=== PATIENT | male | born 1995 | race Caucasian/White ===

== ENCOUNTER 2020-09-16 17:00 | Observation (INO) | payer BC ==
[~2020-09-16 17:00] MED LIST: Iopamidol-370 76% 500 ML 1 ML ONE
[2020-09-16] MEDS ORDERED: Ondansetron PF 4 MG/2 ML Vial ONE (17:32)
[2020-09-16] MEDS ORDERED: Morphine 4 MG/ML VIAL ONE ×3 (17:32→21:13)
[2020-09-16 17:36] LABS: #Eosinphils 0.1 thou/uL (0.0-0.7); #Monocytes 1.4 thou/uL (0.11-0.59); #Neutrophils 9.5 thou/uL (1.40-6.50); %Basophils 0.2 % (0.0-1.0); %Eosinophils 0.5 % (0.0-10.0); %Lymphocytes 8.6 % (21.0-51.0); %Monocytes 11.7 % (0.0-10.0); Hemoglobin 15.7 g/dL (14.0-18.0); Mean Corpuscular HGB CONC 34.3 g/dL (32.0-36.0); Mean Corpuscular Hemoglobin 30.4 pg (27.0-31.0); Mean Corpuscular Volume 88.7 fL (78.0-98.0); Mean Platelet Volume 7.4 fL (7.4-10.4); Platelet Count 264 thou/uL (130-400); RBC Distribution Width 11.5 % (11.5-14.5); Red Blood Cell (RBC) Count 5.17 mill/uL (4.70-6.10)
[2020-09-16] MEDS ORDERED: Piperacillin/Tazobactam 4.5 GM VIAL ONE (17:45)
[2020-09-16 17:56] LABS: ALT (SGPT) 239 U/L (8-55); AST (SGOT) 64 U/L (5-34); Alkaline Phosphatase 111 U/L (40-110); Anion Gap 17 mmol/L (10-20); BUN (Urea Nitrogen) 7 mg/dL (8.9-20.6); Bilirubin, Total 1.6 mg/dL (0.2-1.2); Calc. Creatinine Clearance 0 mL/min (70-130); Calcium 9.9 mg/dL (7.8-10.44); Carbon Dioxide 23 mmol/L (22-29); Chloride 102 mmol/L (98-107); Globulin 3.2 g/dL (2.4-3.5); Glucose 126 mg/dL (70-105); Lipase 23 U/L (8-78); Protein, Total 8.2 g/dL (6.0-8.3); Sodium 138 mmol/L (136-145)
--- NOTE | 2020-09-16 18:17 | ULT ---
GALLBLADDER ULTRASOUND: HISTORY: Right upper quadrant abdominal pain, status post recent cholecystectomy FINDINGS: The liver demonstrates homogeneous echotexture without focal mass or intrahepatic biliary ductal dila tation. Interval changes of cholecystectomy are noted since the ultrasound of 07/11/2020. The right kidney is normal. The pancreas is not visualized due to overlying bowel gas. There is small amount of free fluid adjacent to the liver probably in the gallbladder fossa. The common duct [id number] in diameter. IMPRESSION: Postoperative changes of cholecystectomy without evidence of biliary obstruction. Small amount of fr ee fluid is most likely postoperative. If there is clinical concern for a bile leak, further evaluation with HIDA scan should be performed.
--- NOTE | 2020-09-16 21:29 | CT ---
CT ABDOMEN AND PELVIS WITH IV CONTRAST: History: Cholecystectomy by Dr. Yeager at the [facility] for cholelithiasis four days ago. Right sided progressively worsening abdominal pain. Nausea without vomiting. Constipation and fever, contr ibuted to Hydrocodone the patient has been taking. Comparison: CT scan from previous day ([facility]) FINDINGS: The lung bases are clear. Changes of cholecystectomy are again seen. A small amount of free air noted on the previous exam is no longer seen. A moderate amount of free fluid is seen in the pelvis. Small amount of perihepatic fluid and fluid in the gallbladder fossa are again seen. A tiny speck of air i n the gallbladder again seen. The remainder of free air has improved in the interim. No abnormally lo culated fluid collection is noted to suggest abscess formation. The small bowel loops are not abnorma lly dilated but are fluid filled. Contrast seen on the previous study has moved from the small bowel into the right colon with a normal appearing appendix. The urinary bladder is well distended and normal. No acute osseous abnormality i s seen. IMPRESSION: 1. Redemonstration of post-operative changes with a stable amount of fluid in the abdomen and pelvis since yesterday. If there is concern for bile leak, further evaluation with HIDA scan should be perfo rmed. POS: OFF
--- NOTE | 2020-09-16 23:05 | PDOC.H&P ---
- History & Physical Encounter Time: 09/16/20 Encounter Time: 23:00 CHIEF COMPLAINT: Abdominal pain HISTORY OF PRESENT ILLNESS: 25-year-old male presents with a 2-day history of abdominal pain. The patient underwent laparoscopic cholecystectomy for symptomatic cholelithiasis on September 13, 2020. Over the last 48 hours, he has reported significant amounts of abdominal pain. This is described as severe cramping and seems to move around his abdomen. Is associated with anorexia, constipation, and fever measured at 101. He presented to an outside emergency department yesterday where computed tomography of the abdomen demonstrated a small amount of fluid in the pelvis and subhepatic space as well as normal postoperative changes after laparoscopic cholecystectomy. His total bilirubin was 1.4. He contacted the surgery clinic earlier today with complaints of abdominal pain. Given his benign findings at the emergency department and the description of his pain, it was recommended that he contact the clinic first thing in the morning to schedule a follow-up appointment; however, his pain persisted and he presented to the emergency department again. REVIEW OF SYSTEMS: General: Endorses fever Eyes: Denies visual changes, pain, or irritation ENT: Denies changes in hearing, nasal discharge, or sore throat Cardiovascular: Denies chest pain, palpitations, shortness of breath, or edema. Respiratory: Denies cough, shortness of breath, or wheezing Gastrointestinal: Positive per HPI Genitourinary: Denies frequent urination or dysuria Musculoskeletal: Denies pain or restricted motion Integumentary: Denies abnormal rashes, sores, or skin lesions Neurological: Denies numbness, tingling, or weakness. Psychiatric: Denies new onset anxiety or depression Endocrine: Denies temperature intolerances, polyuria, or excessive thirst Hematologic: Denies abnormal bruising or bleeding PAST MEDICAL HISTORY: Denies PAST SURGICAL HISTORY: Laparoscopic cholecystectomy FAMILY HISTORY: Noncontributory SOCIAL HISTORY non smoker, denies illicit drug use, endorses occasional alcohol consumption. ALLERGIES: No known drug allergies PHYSICAL EXAM: Vital Signs: HR 88 BP 119/75 T 96.6 RR 18 SpO2 [ ] General: Alert and oriented, mild distress ENT: Sclera anicteric, pupils equal and reactive, mucous membranes moist Neck: No jugular venous distention, trachea midline Cardiovascular: Regular rate and rhythm Pulmonary: Clear to auscultation Abdominal: Soft, nondistended, ecchymosis around the umbilical port site. Generalized tenderness to palpation with no evidence of peritonitis Genitourinary: Normal anatomy Rectal: Deferred Integument: No abnormal rashes or lesions Musculoskeletal: No gross deformities or edema, normal range of motion LABORATORY: Laboratory analysis reviewed as well as the laboratory analysis from his emergency department visit yesterday. Today, he shows a white blood cell count of 12 with 79% neutrophils compared to 8.3 yesterday. In addition, his hemoglobin has increased from 13.6-15.7. Total bilirubin today is 1.6 (1.4). AST/ALT reduced from his emergency department visit at 239. Mildly elevated alkaline phosphatase at 111. IMAGING: Computed tomography abdomen reviewed as well as his ultrasound. The radiologist rotation was reviewed as well. Demonstrates postoperative changes from cholecystectomy with small amount of fluid. Resolving intra-abdominal air from pneumoperitoneum. ASSESSMENT: 25-year-old male with postoperative pain and dehydration after laparoscopic cholecystectomy on September 13, 2020. PLAN: Place in observation IV fluid resuscitation Pain control Repeat a.m. labs to include LFTs. We will consider bile leak if total bilirubin is not downtrending.
[2020-09-16] MEDS ORDERED: Ondansetron PF 4 MG/2 ML Vial IVP PRN (23:19)
[2020-09-16] MEDS ORDERED: Morphine 2 MG/ML VIAL SLOW IVP PRN (23:19)
[2020-09-16] MEDS ORDERED: HYDROcodone/Acetaminophen 10/325 mg Tablet PO PRN (23:19)
[2020-09-16 23:49] VITALS: BMI 21.7
[2020-09-17 00:02] LABS: Bilirubin, Direct 0.9 mg/dL (0.1-0.3)
[2020-09-17] MEDS: D5 1/2 NS w/20 mEq KCL 1,000 ML IV SCH ×4 (00:07→21:29)
[2020-09-17 06:00] LABS: #Eosinphils 0.1 thou/uL (0.0-0.7); #Lymphocytes 1.3 thou/uL (1.20-3.40); #Monocytes 1.4 thou/uL (0.11-0.59); #Neutrophils 7.7 thou/uL (1.40-6.50); %Basophils 0.5 % (0.0-1.0); %Eosinophils 1.3 % (0.0-10.0); %Lymphocytes 12.4 % (21.0-51.0); %Monocytes 12.9 % (0.0-10.0); Hemoglobin 13.4 g/dL (14.0-18.0); Mean Corpuscular HGB CONC 33.7 g/dL (32.0-36.0); Mean Corpuscular Hemoglobin 30.3 pg (27.0-31.0); Mean Corpuscular Volume 89.7 fL (78.0-98.0); Mean Platelet Volume 7.5 fL (7.4-10.4); Platelet Count 224 thou/uL (130-400); RBC Distribution Width 11.4 % (11.5-14.5); Red Blood Cell (RBC) Count 4.44 mill/uL (4.70-6.10); White Blood Cell (WBC) Count 10.5 thou/uL (4.8-10.8)
[2020-09-17 06:18] LABS: ALT (SGPT) 162 U/L (8-55); AST (SGOT) 34 U/L (5-34); Albumin 4.1 g/dL (3.5-5.0); Alkaline Phosphatase 95 U/L (40-110); Anion Gap 13 mmol/L (10-20); BUN (Urea Nitrogen) 6 mg/dL (8.9-20.6); Bilirubin, Direct 0.9 mg/dL (0.1-0.3); Bilirubin, Total 1.4 mg/dL (0.2-1.2); Calc. Creatinine Clearance 134 mL/min (70-130); Calcium 9.1 mg/dL (7.8-10.44); Carbon Dioxide 26 mmol/L (22-29); Chloride 104 mmol/L (98-107); Glucose 126 mg/dL (70-105); Potassium 4.1 mmol/L (3.5-5.1); Protein, Total 6.8 g/dL (6.0-8.3); Sodium 139 mmol/L (136-145)
[2020-09-17] MEDS ORDERED: Glycopyrrolate 0.2 MG/ML 5 ML SYRINGE ONE (08:51)
[2020-09-17] MEDS ORDERED: Succinylcholine 200 MG/10 ml SYRINGE FS ONE (08:51)
[2020-09-17] MEDS ORDERED: PROPOFOL 200 MG/20 ML VIAL ONE (08:51)
[2020-09-17] MEDS ORDERED: Rocuronium Bromide 10 MG/ML (10ML VIAL) ONE (08:51)
[2020-09-17] MEDS ORDERED: Ondansetron PF 4 MG/2 ML Vial ONE (08:51)
[2020-09-17] MEDS ORDERED: Lidocaine 1% PF 5 ML VIAL ONE (08:51)
[2020-09-17] MEDS: Polyethylene Glycol 3350 17 GM Packet PO SCH (09:07)
[2020-09-17] MEDS: Famotidine 20 MG TAB PO SCH ×2 (09:07→21:28)
[2020-09-17 10:06] LABS: SARS-CoV-2 PCR by NAA Not Detected (NotDetected)
[2020-09-17] MEDS ORDERED: Ketorolac Tromethamine 30 MG/ML VIAL IVP PRN (13:00)
[2020-09-17] MEDS ORDERED: Morphine 4 MG/ML VIAL SLOW IVP PRN (13:00)
[2020-09-17] MEDS ORDERED: Morphine 2 MG/ML VIAL SLOW IVP PRN (13:11)
--- NOTE | 2020-09-17 13:16 | PRG ---
DATE OF SERVICE: 09/17/2020 SUBJECTIVE: The patient had a laparoscopic cholecystectomy done on Thursday, did well until Thursday night when he started having severe right upper quadrant pain. He went to the ER, they did a CT, did not see much. He was given pain medicine, felt better. Discharged home. Returned to the ER. LFTs were elevated. He was admitted. Again, a repeat CT showed small fluid collection. No free air. No dilatation of the bile ducts. Ultrasound confirmed that he was doing a lot better this morning and felt like he was going to be able to handle it and then pain got worse this afternoon. OBJECTIVE: On examination, his temperature is 97.3, pulse 104, blood pressure 132/72. He is holding his right side. No nausea or vomiting. His abdomen is soft, nondistended. The incisions look good. There is no evidence of infection. His urine is clear. LABORATORY DATA: His white count is 10, hemoglobin and hematocrit 13 and 39, platelet count of 224. His T-bilirubin is 1.4. His ALT is 162, otherwise normal liver functions. ASSESSMENT: Post cholecystectomy pain with elevated liver functions. PLAN: BRINAA scan. Job ID: [id number]
--- NOTE | 2020-09-17 14:53 | NM ---
Radionucleotide hepatobiliary scan HISTORY: Abdominal fluid collection. Recent cholecystectomy. Evaluate for biliary leak. FINDINGS: Early images show physiologic uptake of radiotracer throughout the hepatic parenchyma. As e waldemar as 5 minutes, a small focus of uptake is evident just inferior to the right liver margin. Contrast continues to accumulate over the right side of the liver, correlating with the fluid collect ion on recent CT exams. No uptake is evident within the bowel. IMPRESSION : High grade biliary leak. Findings were called to Dr. Yeager at 1446 hours. Code CR.
[2020-09-17] MEDS ORDERED: Indomethacin 50 MG SUPP ONE (15:33)
[2020-09-17] MEDS ORDERED: Fentanyl 100 MCG/2 ML VIAL ONE (15:37)
[2020-09-17] MEDS ORDERED: Midazolam HCl 2 mg/2 ml Vial ONE (15:37)
[2020-09-17] MEDS ORDERED: Iothalamate Meglumine 60% 50 ML VIAL FS ONE (15:48)
[2020-09-17] MEDS ORDERED: cefTRIAXone\\ROCEPHIN 2 GM VIAL ONE (16:28)
[2020-09-17] MEDS ORDERED: Sodium Chloride 0.9% 10 ML ONE (16:28)
[2020-09-17] MEDS ORDERED: Sodium Chloride 0.9% 100 ML ONE (16:28)
--- NOTE | 2020-09-17 17:31 | RAD ---
ERCP: History: Biliary leak FINDINGS: Contrast injected into a nondilated common bile duct. On these three images presented there is contra st passing into the region of the gallbladder fossa. The exact site is difficult and may be in the re gion of the cystic duct remnant. IMPRESSION: Evidence of extravasation of contrast into the gallbladder fossa region. POS: OFF
--- NOTE | 2020-09-17 17:59 | CON ---
DATE OF CONSULTATION: 09/17/2020 CHIEF COMPLAINT: Abdominal pain. HISTORY OF PRESENT ILLNESS: Mr. Huang is a 25-year-old male, whom I actually saw 2 months ago as outpatient with symptomatic cholelithiasis. Ultrasound performed at that time did confirm a single large stone. Surgery referral was made at that time. The patient subsequently underwent a laparoscopic cholecystectomy five days ago at the [facility]. After the procedure, he felt rather well for the first day and a half. However, since then, he has had increasing nonlocalizing abdominal pain with radiation to his right shoulder. He did not have any nausea or vomiting. He reports having a low-grade fever up to 100 degrees yesterday, but no chills or sweats. He has not had a bowel movement since the cholecystectomy. Initial CT performed at the [facility] showed fluid collection that was thought to be postoperative. There was no acute changes. The patient presented back to [facility] last night. HIDA scan performed earlier this morning did showed evidence of biliary leakage. PAST MEDICAL HISTORY: 1. Healthy without any medical illness. 2. Status post recent cholecystectomy. ALLERGIES: NONE. MEDICATIONS AT HOME: None. 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 No tobacco or any alcohol usage. FAMILY HISTORY: Both parents with cholelithiasis. REVIEW OF SYSTEMS: Ten-point review of systems did not show any other pertinent positives or negatives and no other symptoms other than listed above. PHYSICAL EXAMINATION: VITAL SIGNS: Temperature 99.0, blood pressure 138/68, and pulse of 89. GENERAL: He is alert, conversant, without distress. HEENT: Shows anicteric sclerae. Oropharynx is clear and moist. NECK: Supple. CV: Shows normal S1 and S2. Regular rate and rhythm. CHEST: Show breath sounds clear to auscultation. ABDOMEN: Mildly distended, diffusely tender. No guarding or rebound. No active bowel sounds. EXTREMITIES: Show no edema. LABORATORY DATA: WBCs 10.5, hemoglobin 13.4, and platelet count of 324. Electrolytes within normal range, creatinine 0.87, bilirubin 1.4, AST 34, ALT of 162, and alkaline phosphatase 95. IMAGING STUDY: CT as above showed nonspecific fluid collection. HIDA scan showed exteriorization of bowel into the peritoneal cavity. ASSESSMENT: A 25-year-old male, who is postop day #5 from laparoscopic cholecystectomy for symptomatic cholelithiasis, now presents with increasing abdominal pain with HIDA scan suggestive of biliary leakage. Leak is likely either from aberrant duct of Luschka or from cystic duct. RECOMMENDATION: Proceed with ERCP with sphincterotomy and stent placement. Indication including risk, not limited to, bleeding, perforation, and pancreatitis were reviewed with Mr. Huang. All questions answered. The patient agrees to proceed. Job ID: [id number]
--- NOTE | 2020-09-17 18:03 | OP ---
DATE OF PROCEDURE: 09/17/2020 PROCEDURE PERFORMED: Endoscopic retrograde cholangiopancreatography with sphincterotomy and biliary stent placement. PREMEDICATION: Given by Anesthesiology. PREPROCEDURE DIAGNOSES: 1. Status post cholecystectomy. 2. Bile leakage by HIDA scan. POSTPROCEDURE DIAGNOSES: 1. Biliary leakage from aberrant duct in right upper quadrant. 2. Normal cystic stump and common bile duct. PROCEDURE IN DETAILS: Written consents were obtained prior to procedure. After adequate sedation, the side-viewing endoscope was advanced down the stomach through the pylorus into duodenum. The ampulla was visualized and appeared to be very small, but without any other abnormality. Selective cannulation was performed with a sphincterotome with guidewire assist. The cannulation of the common bile duct was fairly easy. Injection of contrast showed normal cystic stump without any extravasation. The catheter was advanced further up into the bile duct with injection contrast showed extravasation in the right upper quadrant consistent with leakage through the aberrant duct of Luschka. A 1-cm sphincterotomy was performed at 12 o'clock position with good hemostasis. A guide apparatus was placed over the guidewire. 11.5-Italian 5-cm biliary stent was then placed across the guide apparatus into good position. There was good excretion of contrast in bowel through the bile duct. Fluoroscopy performed showed good placement. The patient tolerated the procedure well without any immediate complication. ASSESSMENT: Biliary leakage, status post sphincterotomy and biliary stent placement. RECOMMENDATIONS: 1. Start on clear liquids. 2. I anticipate discharge in the next day or two. Job ID: [id number]
[2020-09-17] MEDS ORDERED: Enoxaparin Sodium 40 MG/0.4 ML SYRINGE SC SCH (21:00)
[2020-09-18] MEDS: D5 1/2 NS w/20 mEq KCL 1,000 ML IV SCH (05:20)
[2020-09-18 06:10] LABS: #Eosinphils 0.1 thou/uL (0.0-0.7); #Lymphocytes 1.1 thou/uL (1.20-3.40); #Monocytes 1.3 thou/uL (0.11-0.59); #Neutrophils 8.3 thou/uL (1.40-6.50); %Basophils 0.1 % (0.0-1.0); %Eosinophils 0.5 % (0.0-10.0); %Monocytes 12.3 % (0.0-10.0); %Neutrophils 77.2 % (42.0-75.0); Hemoglobin 13.5 g/dL (14.0-18.0); Mean Corpuscular HGB CONC 32.7 g/dL (32.0-36.0); Mean Corpuscular Hemoglobin 28.9 pg (27.0-31.0); Mean Corpuscular Volume 88.3 fL (78.0-98.0); Mean Platelet Volume 7.6 fL (7.4-10.4); Platelet Count 275 thou/uL (130-400); RBC Distribution Width 11.3 % (11.5-14.5); Red Blood Cell (RBC) Count 4.66 mill/uL (4.70-6.10); White Blood Cell (WBC) Count 10.7 thou/uL (4.8-10.8)
[2020-09-18 06:26] LABS: ALT (SGPT) 118 U/L (8-55); AST (SGOT) 20 U/L (5-34); Albumin 4.3 g/dL (3.5-5.0); Alkaline Phosphatase 108 U/L (40-110); Bilirubin, Direct 0.9 mg/dL (0.1-0.3); Bilirubin, Total 1.3 mg/dL (0.2-1.2); Protein, Total 7.3 g/dL (6.0-8.3)
[2020-09-18] MEDS: Polyethylene Glycol 3350 17 GM Packet PO SCH (08:40)
[2020-09-18] MEDS: Famotidine 20 MG TAB PO SCH (08:40)
[2020-09-18 11:47] VITALS: BP 118/70; TEMP 97.7
--- NOTE | 2020-09-19 06:44 | DIS ---
DATE OF ADMISSION: 09/16/2020 DATE OF DISCHARGE: 09/18/2020 DISCHARGE DIAGNOSIS: Postoperative bile leak from duct of Luschka. PROCEDURES DURING ADMISSION: CT scan of abdomen, ultrasound of abdomen, HIDA scan, and ERCP with stent placement. HOSPITAL COURSE: The patient was admitted. He seemed to be doing fine first day or so, then his pain got worse. A HIDA scan was performed, showed a definite bile leak. GI was consulted. He underwent ERCP with placement of a stent. Postprocedure, he is doing well. His pain is minimal. He wants to go home. He is tolerating liquids well. He was discharged to home on his usual medications. He will follow up with me in 1 week. Job ID: [id number]
== END 2020-09-18 12:32 | disposition home or self-care (01) ==
LOC: ERS 17:00 → ERHOLD 23:09 → SURG A 09-17 05:46
PROVIDERS: ADMIT Surgery; ATTEND Surgery
PROC: 0F798DZ Dilation of Common Bile Duct with Intraluminal Device, Via Natural or Artificial Opening Endoscopic (ICD-10-PCS; principal; 2020-09-17)
DX: K91.89 Other postprocedural complications and disorders of digestive system (principal); K83.8 Other specified diseases of biliary tract; G89.18 Other acute postprocedural pain; R10.9 Unspecified abdominal pain; E86.0 Dehydration; Z20.822 Contact with and (suspected) exposure to COVID-19
CPT/HCPCS: 36415; 74177; 74330; 76705; 78226; 80048; 80053; 80076; 82248; 83605; 83690; 85025; 87040; 87635; 96365; 96372; 96375; 96376; A9537; G0378; J0696; J1650; J1885; J2250; J2270; J2405; J2543; J2704; J3010; J3480; J3490; Q9967; U0003; U0005

== ENCOUNTER 2020-10-24 11:05 | Day surgery (SDC) | payer BC ==
[2020-10-16 12:02] VITALS: BMI 21.7
[~2020-10-24 11:05] MED LIST changes: -Iopamidol-370 76% 500 ML 1 ML ONE; +Lidocaine 1% PF 5 ML VIAL ONE; +PROPOFOL 200 MG/20 ML VIAL ONE; +Rocuronium Bromide 10 MG/ML (10ML VIAL) ONE
[2020-10-24] MEDS ORDERED: Iothalamate Meglumine 60% 50 ML VIAL FS ONE (13:16)
[2020-10-24] MEDS ORDERED: Midazolam HCl 2 mg/2 ml Vial ONE (13:33)
[2020-10-24] MEDS ORDERED: Fentanyl 100 MCG/2 ML VIAL ONE (13:33)
[2020-10-24] MEDS ORDERED: Sodium Chloride 0.9% 100 ML ONE (13:38)
[2020-10-24] MEDS ORDERED: cefTRIAXone\\ROCEPHIN 1 GM VIAL ONE (13:38)
== END 2020-10-24 15:20 | disposition home or self-care (01) ==
LOC: SDC 11:05
PROVIDERS: ATTEND Internal Medicine Gastroenterology
PROC: 0FPB8DZ Removal of Intraluminal Device from Hepatobiliary Duct, Via Natural or Artificial Opening Endoscopic (ICD-10-PCS; principal; 2020-10-24)
DX: Z46.59 Encounter for fitting and adjustment of other gastrointestinal appliance and device (principal)
CPT/HCPCS: 74330; J0696; J2250; J2704; J3010; J3490